=== PATIENT | female | born 2000 | race Caucasian/White ===

== ENCOUNTER 2022-03-03 13:48 | Emergency (ER) | payer OTHER, SELFPAY ==
[2022-03-03 13:54] VITALS: BP 147/80; PULSE 112; RESP 14; TEMP 36.9; O2SAT 98
--- NOTE | 2022-03-03 14:05 | ED.SKABFB ---
HPI - Skin/Abscess/Foreign Bdy General Chief complaint: Skin/Abscess/Foreign Body Stated complaint: Skin Sore/Thumb Time Seen by Provider: 03/03/22 14:06 Source: patient Mode of arrival: ambulatory Limitations: no limitations History of Present Illness HPI narrative: 21-year-old female presented for complaint of right thumb pain with 2 bumps, for the last 3 days. It was itching at onset. She states she has soaked it in Epson salt and tried opening it with cuticle scissors last night. Endorses clear drainage from the site. Rates pain 10 out of 10. Denies any other skin lesions. MD complaint: rash Related Data Allergies Allergy/AdvReac Type Severity Reaction Status Date / Time No Known Allergies Allergy Verified 03/03/22 14:03 Review of Systems Review of Systems: CONSTITUTIONAL: Denies body aches, fever, chills, or sweats. CARDIOVASCULAR: Denies chest pain, palpitations, or edema. RESPIRATORY: Denies cough or dyspnea. SKIN: right thumb wound MUSCULOSKELETAL: Denies back pain, joint pain, or myalgia. NEUROLOGIC: Denies headache, numbness, tingling, or weakness. PSYCH: Denies depression or anxiety. PMFSH Comments At time of signature, I have reviewed and agree with nursing past medical, surgical, social and family history unless otherwise noted. Please see nursing chart for further information. There is no relevant family history pertinent to the presenting complaint Exam Narrative: GENERAL: Well-appearing ENT: Mucous membranes moist. Oropharynx without edema, erythema or lesions. NECK: Supple. No lymphadenopathy CHEST: Clear to auscultation. No respiratory distress. HEART: Regular rate and rhythm. SKIN: Warm, dry. Right thumb palmar surface over the DIP with 3 firm round raised vesicles approximately 2 mm in diameter, tender to palpation c/w dyshidrotic eczema NEURO: Alert and oriented x3. PSYCH: Normal mood and affect Course Course Emergency Course: Patient is aware of diagnosis, understands and agrees to treatment plan. Anticipatory guidance given. Patient agrees to follow-up as directed and is aware of reasons to seek care at the emergency department. Portions of this record may have been created with voice recognition software Level of Care: Express Care Visit Vital Signs Vital signs: Vital Signs Temperature 98.4 F 03/03/22 13:54 Pulse Rate 112 H 03/03/22 13:54 Respiratory Rate 14 03/03/22 13:54 Blood Pressure 147/80 H 03/03/22 13:54 Pulse Oximetry 98 03/03/22 13:54 Oxygen Delivery Room Air 03/03/22 13:54 Temperature 98.4 F 03/03/22 13:54 Pulse Rate 112 H 03/03/22 13:54 Respiratory Rate 14 03/03/22 13:54 Blood Pressure 147/80 H 03/03/22 13:54 Pulse Oximetry 98 03/03/22 13:54 Oxygen Delivery Room Air 03/03/22 13:54 Reviewed MDM - Skin/Abscess/Foreign Bdy MDM Narrative Medical decision making narrative: Cleansed with technicare and warm water. Clear drainage noted. Instructed patient to go to nearest ER immediately for any worsening symptoms including but not limited to: fever, spreading rash, pain, sore throat, headache, dizziness, chest pain, trouble breathing, or any symptoms concerning to the patient. Differential Diagnosis Differential diagnosis: Likely abscess of skin or subcutaneous tissue, urticaria, herpes zoster, cellulitis and contact dermatitis Discharge Plan Discharge Clinical Impression: Dyshidrotic eczema Patient Disposition: Home, Self-Care Condition: Stable Instructions: Antibiotic Form Additional Instructions: Keep the area clean and dry - cleanse with warm water and mild soap and allow to fully dry. Ok to apply neosporin or vaseline to the site Keep it open to air (no bandages) unless it is draining Watch for worsening symptoms including pain, redness, swelling, streaking, pus/drainage, fever. Go to the ER with any of these symptoms or concerns. Follow up with primary care provider in 1 week as needed. Prescription
== END 2022-03-03 14:51 | disposition home or self-care (01) ==
PROVIDERS: Emergency Provider Nurse Practitioner Family
DX: L30.1 Dyshidrosis [pompholyx] (principal)
CPT/HCPCS: 99203; G0463

== ENCOUNTER 2023-03-06 11:31 | Emergency (ER) | payer OTHER, SELFPAY ==
[2023-03-06 11:38] VITALS: BP 125/62; PULSE 89; RESP 20; TEMP 36.7; O2SAT 100
--- NOTE | 2023-03-06 12:21 | ED.URI ---
HPI - URI/Sore Throat General Chief Complaint: Upper Respiratory Infection Stated Complaint: Sore Throat Source: patient and RN notes reviewed History of Present Illness HPI Narrative: 22 yo F presents to urgent care with complaints of a sore throat x 2 days. Denies any fevers, chills, chest pain, SOB, vomiting, congestion, or ear pain. Related Data Home Medications Medication Instructions Recorded Confirmed escitalopram oxalate 20 mg tablet 20 mg PO DAILY 03/06/23 03/06/23 norethindrone (contraceptive) 0.35 See Rx Instructions .Route .COMPLEX 03/06/23 03/06/23 mg tablet Allergies Allergy/AdvReac Type Severity Reaction Status Date / Time No Known Allergies Allergy Verified 03/06/23 11:47 Review of Systems Review of Systems: Pertinent positives and pertinent negatives per HPI. PMFSH Comments At the time of my signature, I reviewed and agree with the nursing past medical, surgical, social, and family history. There is no relevant family history pertinent to the patient complaint. Exam Narrative: GENERAL: This is a well-nourished, well-developed patient, in no apparent distress. HEAD: normocephalic, atraumatic. EYES: Sclera clear/white. Vision is grossly intact. EARS: External ears normal, auditory canals clear and without drainage, TMs normal without perforation. Hearing grossly intact. NOSE: External nose normal with no obvious nasal discharge, nares without redness, no rhinorrhea. THROAT: Mucous membranes moist, posterior pharynx clear. NECK: Neck supple, non-tender without lymphadenopathy, masses or thyromegaly. CARDIOVASCULAR: Regular rate and rhythm without murmurs, gallops, or rubs. RESPIRATORY: Clear to auscultation. Breath sounds equal bilaterally. No wheezes, rales, or rhonchi. GASTROINTESTINAL: Abdomen soft, non-tender, nondistended. Bowel sounds are active. No hepato-splenomegaly, or palpable masses. No guarding. SKIN: warm, intact with no suspicious lesions or rash, good texture and turgor. NEURO: awake, alert, and oriented to person, place and time. There were no obvious focal neurologic abnormalities. EXTREMITIES: No clubbing, cyanosis, or edema. No joint tenderness, effusion, or edema noted. BACK: Nontender without deformity or crepitus. No flank tenderness. Course Course Level of Care: Express Care Visit Vital Signs Vital signs: Vital Signs Temperature 98.0 F 03/06/23 11:38 Pulse Rate 89 03/06/23 11:38 Respiratory Rate 20 03/06/23 11:38 Blood Pressure 125/62 03/06/23 11:38 Pulse Oximetry 100 03/06/23 11:38 Oxygen Delivery Room Air 03/06/23 11:38 Temperature 98.0 F 03/06/23 11:38 Pulse Rate 89 03/06/23 11:38 Respiratory Rate 20 03/06/23 11:38 Blood Pressure 125/62 03/06/23 11:38 Pulse Oximetry 100 03/06/23 11:38 Oxygen Delivery Room Air 03/06/23 11:38 Reviewed MDM - URI/Sore Throat MDM Narrative Medical decision making narrative: Rapid strep is negative in the office; however we will send to the lab for confirmation; there is a small percentage chance that it can come back positive; if it is, we will call you in 2-3days; and your prescription will be call in to your pharmacy. However, there is NO indication for antibiotic at this time. -Increase your fluids and Vitamin C. -Oral rinses such as: Salt water gargles and/or may use topical anesthetic (eg. Chloraseptic spray) or lozenges to relieve dryness or throat pain. -Take tylenol and ibuprofen as needed for pain and fever as directed. -Frequent hand washing or hand superintendent service is one of the best ways to prevent spread of infection. -Follow up with primary care provider in 2-3 days if condition is not improving or seek ER visit if your child starts breathing fast/has trouble breathing, is not drinking enough fluids, muffle voice, difficulty opening the mouth or will not wake up or will not interact with you. Stop vaping. Differential Diagnosis Differential diagnosis: Likely upper respir
== END 2023-03-06 12:25 | disposition home or self-care (01) ==
PROVIDERS: Emergency Provider Nurse Practitioner Family
DX: J02.9 Acute pharyngitis, unspecified (principal); F32.A Depression, unspecified
CPT/HCPCS: 87081; 87880; 99213; G0463

== ENCOUNTER 2023-05-14 09:11 | Emergency (ER) | payer OTHER, SELFPAY ==
--- NOTE | 2023-05-14 09:15 | ED.URI ---
HPI - URI/Sore Throat General Chief Complaint: Upper Respiratory Infection Stated Complaint: Body Ache/Congestion Time Seen by Provider: 05/14/23 10:40 Source: patient and RN notes reviewed Mode of arrival: ambulatory Limitations: no limitations History of Present Illness HPI Narrative: 23-year-old female presents concern for 3 day history of runny nose, stuffy nose, headache, ear pain, body aches. She reports she took a COVID test 2 days ago that is negative. Reports taking [id number] medicine. MD elicited complaint: cough and sore throat Related Data Home Medications Medication Instructions Recorded Confirmed escitalopram oxalate 20 mg tablet 20 mg PO DAILY 03/06/23 03/06/23 norethindrone (contraceptive) 0.35 See Rx Instructions .Route .COMPLEX 03/06/23 03/06/23 mg tablet Allergies Allergy/AdvReac Type Severity Reaction Status Date / Time No Known Allergies Allergy Verified 03/06/23 11:47 Review of Systems Review of Systems: CONSTITUTIONAL: Reports malaise EYES: Denies visual changes, redness, or discharge. ENT: Reports rhinorrhea, congestion, otalgia and sore throat. CARDIOVASCULAR: Denies chest pain, palpitations, or edema. RESPIRATORY: Reports cough. Denies dyspnea. GASTROINTESTINAL: Denies abdominal pain, nausea, vomiting, diarrhea SKIN: Denies rash or itching. MUSCULOSKELETAL: Reports myalgia. NEUROLOGIC: Reports headache. All systems reviewed & are unremarkable except as noted in HPI and below PMFSH Comments At time of signature, agree with nursing past medical, surgical, social and family history. There is no relevant family history pertinent to the presenting complaint Exam Narrative: GENERAL: Well-appearing, well-nourished, and in no acute distress. HEAD: Normocephalic EYES: PERRLA, conjunctivae clear ENT: Nares clear, turbinates edematous and erythematous, clear discharge. Mucous membranes moist. TM erythematous and bulging bilaterally; no tragal tenderness. Oropharynx not erythematous without lesions. Tonsils not enlarged and without exudate, no drooling, no hoarseness, no trismus, uvula midline. NECK: Supple. No lymphadenopathy CHEST: Clear to auscultation, breath sounds equal. No wheezing, rhonchi, rales, or stridor. No respiratory distress, speaks in full sentences. HEART: Regular rate and rhythm. No murmur heard. SKIN: Warm, dry, no rash. NEURO: Alert and oriented x3. PSYCH: Normal mood and affect Course Course Emergency Course: Patient is aware of diagnosis, understands and agrees to treatment plan. Anticipatory guidance given. Patient agrees to follow-up as directed and is aware of reasons to seek care at the emergency department. Portions of this record may have been created with voice recognition software Level of Care: Express Care Visit Vital Signs Vital signs: Vital Signs Temperature 98.2 F 05/14/23 09:57 Pulse Rate 95 05/14/23 09:57 Respiratory Rate 18 05/14/23 09:57 Blood Pressure 126/76 05/14/23 09:57 Pulse Oximetry 100 05/14/23 09:57 Oxygen Delivery Room Air 05/14/23 09:57 Temperature 98.2 F 05/14/23 09:57 Pulse Rate 95 05/14/23 09:57 Respiratory Rate 18 05/14/23 09:57 Blood Pressure 126/76 05/14/23 09:57 Pulse Oximetry 100 05/14/23 09:57 Oxygen Delivery Room Air 05/14/23 09:57 Reviewed. MDM - URI/Sore Throat MDM Narrative Medical decision making narrative: Differential diagnosis considered: Rosas virus, strep pharyngitis, allergic rhinitis, upper respiratory tract infection, sinusitis, rhinosinusitis, nasopharyngitis. viral pharyngitis, otitis media, otitis externa, pneumonia, bronchitis, viral cough syndrome, viral syndrome, and influenza. Exam findings show no acute concerns or changes; patient is non-toxic appearing and is in no distress. Patient is appropriate for outpatient treatment and follow-up. Lab Data Attestation: I reviewed the patient's lab results. Labs: Lab Results 05/14/23 Ra
[2023-05-14 09:57] VITALS: BP 126/76; PULSE 95; RESP 18; TEMP 36.8; O2SAT 100
== END 2023-05-14 10:55 | disposition home or self-care (01) ==
PROVIDERS: Emergency Provider Nurse Practitioner
DX: U07.1 COVID-19 (principal); H66.90 Otitis media, unspecified, unspecified ear
CPT/HCPCS: 87426; 87804; 99213; C9803; G0463

== ENCOUNTER 2023-12-19 19:46 | Emergency (ER) | payer OTHER, SELFPAY ==
[2023-12-19 19:56] VITALS: BP 118/57; PULSE 136; RESP 14; TEMP 36.8; O2SAT 100
[2023-12-19 19:59] VITALS: BP 118/57; PULSE 136; RESP 14; TEMP 36.8; O2SAT 100
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
== END 2023-12-19 20:19 | disposition short-term general hospital (02) ==
PROVIDERS: Emergency Provider Nurse Practitioner Family; PCP Family Medicine
DX: T23.351A Burn of third degree of right palm, initial encounter (principal); X16.XXXA Contact with hot heating appliances, radiators and pipes, initial encounter
CPT/HCPCS: 99212; G0463

== ENCOUNTER 2024-11-10 13:06 | Emergency (ER) | payer OTHER, SELFPAY ==
[2024-11-10 13:17] VITALS: BP 138/82; PULSE 99; RESP 18; TEMP 36.4; O2SAT 100
--- NOTE | 2024-11-10 13:29 | ED_ITS ---
HPI - General Adult General Chief complaint: Extremity Injury, Upper Stated complaint: Right Thumb Pain Time Seen by Provider: 11/10/24 13:29 Source: patient, RN notes reviewed and old records reviewed Mode of arrival: ambulatory Limitations: no limitations History of Present Illness HPI narrative: 24 year old female MD complaint: swelling redness to radial aspect of right thumb Related Data Home Medications ?Medication ?Instructions ?Recorded ?Confirmed ?Last Taken ?Type metoclopramide HCl 5 mg tablet mg 11/10/24 Unknown History Allergies Allergy/AdvReac Type Severity Reaction Status Date / Time No Known Allergies Allergy Verified 11/10/24 13:23 Review of Systems Review of Systems: CONSTITUTIONAL: Denies fever, chills, or sweats. CARDIOVASCULAR: Denies chest pain, palpitations, or edema. RESPIRATORY: Denies cough or dyspnea. GASTROINTESTINAL: Denies abdominal pain, nausea, vomiting SKIN: Reports redness and swelling. Denies purulent drainage, vesicles, bullae, numbness, pain beyond proportion MUSCULOSKELETAL: Denies myalgia. NEUROLOGIC: Denies headache, numbness All systems reviewed & are unremarkable except as noted in HPI and below PMFSH Comments At time of signature, agree with nursing past medical, surgical, social and family history. There is no relevant family history pertinent to the presenting complaint Exam Narrative: GENERAL: Well-appearing, well-nourished, and in no acute distress. HEAD: Normocephalic, atraumatic. EYES: PERRLA and EOMI. ENT: Nares clear, no rhinorrhea or epistaxis. Mucous membranes moist. NECK: Supple. CHEST: Clear to auscultation. No respiratory distress. HEART: Regular rate and rhythm. No murmur heard. Normal peripheral pulses. ABDOMEN: Soft, nontender, nondistended, normal active bowel sounds. EXTREMITIES: Normal range of motion. No edema. SKIN: Warm, dry. Erythema, induration, tenderness, warmth with sharp margins noted (XX). No vesicles, bullae, necrosis, ecchymosis, crepitus noted NEURO: No focal deficits. Alert and oriented x3. Course Course Emergency Course: Patient is aware of diagnosis, understands and agrees to treatment plan. Anticipatory guidance given. Patient agrees to follow-up as directed and is aware of reasons to seek care at the emergency department. Portions of this record may have been created with voice recognition software Level of Care: Express Care Visit Vital Signs Vital signs: Vital Signs Temperature 36.4 C L 11/10/24 13:17 Pulse Rate 99 11/10/24 13:17 Respiratory Rate 18 11/10/24 13:17 Blood Pressure 138/82 11/10/24 13:17 Pulse Oximetry 100 11/10/24 13:17 Oxygen Delivery Room Air 11/10/24 13:17 Temperature 36.4 C L 11/10/24 13:17 Pulse Rate 99 11/10/24 13:17 Respiratory Rate 18 11/10/24 13:17 Blood Pressure 138/82 11/10/24 13:17 Pulse Oximetry 100 11/10/24 13:17 Oxygen Delivery Room Air 11/10/24 13:17 Reviewed Medical Decision Making Vital Signs Vital Signs: Vital Signs Temperature 36.4 C L 11/10/24 13:17 Pulse Rate 99 11/10/24 13:17 Respiratory Rate 18 11/10/24 13:17 Blood Pressure 138/82 11/10/24 13:17 Pulse Oximetry 100 11/10/24 13:17 Oxygen Delivery Room Air 11/10/24 13:17 Temperature 36.4 C L 11/10/24 13:17 Pulse Rate 99 11/10/24 13:17 Respiratory Rate 18 11/10/24 13:17 Blood Pressure 138/82 11/10/24 13:17 Pulse Oximetry 100 11/10/24 13:17 Oxygen Delivery Room Air 11/10/24 13:17 Critical Care Time Critical Care Time Critical Care Time: No Discharge Plan Discharge Clinical Impression: Paronychia, Paronychia of thumb, right Patient Disposition: Home, Self-Care Condition: Stable Instructions: Antibiotic Form, Paronychia (ED) Additional Instructions: Soak right thumb in warm soapy water twice daily rinse apply mupirocin ointment and Band-Aid watch for increasing infection--redness, swelling, drainage Tylenol or ibuprofen for any fever pain follow up with PCP in 7-10 days for a wound check recheck if develop fever, chills, increasing symptom Go to the ER if your symptoms become worse of if ANY new symptoms develop Antibiotic as prescribed complete all doses Or any new gloves when cleaning and use of chemicals If your symptoms persist, change or worsen significantly before you can contact your personal physician then please, without delay, go to the emergency department for further evaluation. Follow-up with PCP in 7-10 days or sooner if needed Follow up with PCP soon in regards to your blood pressure which is elevated above threshold for referral. Blood pressure above 120/80 may indicate pre- hypertension. 138/82 Patient Language: Macedonian Prescriptions: New cephalexin 500 mg capsule 500 mg PO Q8H Qty: 30 0RF mupirocin [Centany] 2 % ointment 1 applic topical BID Qty: 22 0RF No Action metoclopramide HCl 5 mg tablet Follow-up/Referrals: Jason,Leah May MD [Primary Care Provider] - Time of Disposition: 13:40 Quality Moise Coma Scale Eyes: Open Verbal: Oriented and Alert Motor: Follows Commands Moise Coma Total Score: 15
--- OUTSIDE RECORDS SUMMARY | 2024-11-10 14:28 | XMS_ITS | Referral Summary ---
Author Organization [facility] [address] Address [address] [place] [address] Phone Care Team Providers Care Puff Ironer Name Role Phone Leah Gomez MD Primary Care Provider [phone] Encounters Date Type Department Care Team Description 09/14/2024 2:45 PM CHEMISTRY QUALITY CONTROL ANALYST Office Visit [facility] [address] [place] [address] Health 3rd Floor [address] [place] [address] Justine Garcia MD Cervical cancer screening (Primary Dx); Dysmenorrhea, unspecified from Last 3 Months Allergies No known active allergies Medications HYDROcodone-aceta minophen (NORCO) 5-325 mg per tabletIndications :Pain Take 1 tablet by mouth every 6 (six) hours as needed for pain for up to 20 doses 20 tablet 4 Active silver sulfadiazine (SILVADENE, SSD) 1 % cream Apply topically daily 50 g 4 Active Active Problems No known active problems Immunizations Immunization Administration Dates Next Due Tdap 12/19/2023 Social History Tobacco Use Types Packs/Day Years Used Date Smoking Tobacco: Never Tobacco Cessation:Counseling Given: Not Answered Hunger Vital Sign Answer Date Recorded Within the past 12 months, y ou worried that your food would run out before you got the money to buy more. Never true 09/14/19 25 Within the past 12 months, t he food you bought just didn't last and you didn't have money to get more. Never true 09/14/2024 Personal Safety Answer Date Recorded Have you ever been in or are you currently in a harmful physical or emotional relationship or is someone making you feel afraid or unsafe? Denies 12/19/2023 Comments No Sex and Gender Information Value Date Recorded Sex Assigned at Not on file Legal Sex Female 8:43 AM CHEMISTRY QUALITY CONTROL ANALYST Gender Identity Female 09/14/2024 11:44 AM CHEMISTRY QUALITY CONTROL ANALYST Sexual Orientation Straight 09/14/2024 11 :44 AM CHEMISTRY QUALITY CONTROL ANALYST Last Filed Vital Signs Vital Sign Reading Time Taken Comments Blood Pressure 136/72 09/14/2024 2:37 PM CHEMISTRY QUALITY CONTROL ANALYST Pulse 119 09/14/2024 2:37 PM CHEMISTRY QUALITY CONTROL ANALYST Temperature 37.2 C (99 F) 12/19/2023 8:58 PM CDT Respiratory Rate 18 12/19/2023 8:58 PM CDT Oxygen Saturation 100% 09/14/2024 2:37 PM CHEMISTRY QUALITY CONTROL ANALYST Inhaled Oxygen Concentration - - Weight 99.3 kg (219 lb) 09/14/2024 2:37 PM CHEMISTRY QUALITY CONTROL ANALYST Height 162.6 cm (5' 4 ) 12/19/2023 8:58 PM CDT Body Mass Index 37.59 12/19/2023 8:58 PM CDT Plan of Treatment Not on file Insurance [facility] Care Teams Puff Ironer Relationship Specialty Start Date End Date Leah Gomez MD [address] [place] [address] PCP - General Obstetrics and Gynecology 11/07/23
--- OUTSIDE RECORDS SUMMARY | 2024-11-10 14:28 | XMS_ITS | Clinical Summary ---
Author Organization [facility] [address] Address [address] [place] [address] Phone Care Team Providers Care Customer Service Consultant Name Role Phone Leah Gomez MD Primary Care Provider [phone] Allergies No known active allergies Medications HYDROcodone-aceta minophen (NORCO) 5-325 mg per tabletIndications :Pain Take 1 tablet by mouth every 6 (six) hours as needed for pain for up to 20 doses 20 tablet 4 Active silver sulfadiazine (SILVADENE, SSD) 1 % cream Apply topically daily 50 g 4 Active Active Problems No known active problems Encounters Date Type Department Care Team Description 09/14/2024 2:45 PM WASTEWATER PLANT CIVIL ENGINEER Office Visit Obstetrics and Gynecology Clinic [facility] 3rd Floor [address] [place] [address] Justine Garcia MD Cervical cancer screening (Primary Dx); Dysmenorrhea, unspecified from Last 3 Months Immunizations Immunization Administration Dates Next Due Tdap [...] on file Legal Sex Female 8:43 AM WASTEWATER PLANT CIVIL ENGINEER Gender Identity Female 09/14/2024 11:44 AM WASTEWATER PLANT CIVIL ENGINEER Sexual Orientation Straight 09/14/2024 11 :44 AM WASTEWATER PLANT CIVIL ENGINEER Obstetrics History Para Term AB IAB SAB Ectopic Multiple Livin g Live Births 0 0 0 0 0 0 0 0 0 0 0 Last Filed Vital Signs Vital Sign Reading Time Taken Comments Blood Pressure 136/72 09/14/2024 2:37 PM WASTEWATER PLANT CIVIL ENGINEER Pulse 119 09/14/2024 2:37 PM WASTEWATER PLANT CIVIL ENGINEER Temperature 37.2 C (99 F) 12/19/2023 8:58 PM CDT Respiratory Rate 18 12/19/2023 8:58 PM CDT Oxygen Saturation 100% 09/14/2024 2:37 PM WASTEWATER PLANT CIVIL ENGINEER Inhaled Oxygen Concentration - - Weight 99.3 kg (219 lb) 09/14/2024 2:37 PM WASTEWATER PLANT CIVIL ENGINEER Height 162.6 cm (5' 4 ) 12/19/2023 8:58 PM CDT Body Mass Index 37.59 12/19/2023 8:58 PM CDT Plan of Treatment Health Maintenance Due Date Last Done Comments Cervical Cancer Screening 2002 Depression Screening 2002 Hepatitis C Screening 2002 Regular Well Visit/Exam 18-64 2020 Covid-19 Vaccine (3 - 2023-2 5 season) 2024 05/21/2021, 04/26/2021 Influenza Vaccine (#1) 2024 05/20/2015 DTaP/Tdap/Td Vaccine (7 - Td or Tdap) 12/18/2033 12/19/2023, 12/05/2012, 04/07/2007, Additional history exists Hepatitis B Screening Completed 2002 , 2002, 2002 Pneumococcal vaccine <65 Completed 003, 2002, 2002 Varicella Vaccines Completed 01/17/2011, 04/07/2007 HPV Vaccines Completed 03/14/2016, 07/04, 05/20/2015 Meningococcal B Vaccine Completed 03/20/2019, 12/08 Insurance [facility] Care Teams Customer Service Consultant Relationship Specialty Start Date End Date Leah Gomez MD [address] [place] [id number] PCP - General Obstetrics and Gynecology 11/07/23
== END 2024-11-10 13:44 | disposition home or self-care (01) ==
PROVIDERS: Emergency Provider Registered Nurse; PCP Family Medicine
DX: L03.011 Cellulitis of right finger (principal)
CPT/HCPCS: 99213; G0463

== ENCOUNTER 2025-01-09 08:36 | Emergency (ER) | payer OTHER, SELFPAY ==
--- OUTSIDE RECORDS SUMMARY | 2025-01-09 08:38 | XMS_ITS | Referral Summary ---
Author Organization [facility] [address] Address 1 [place] [address] Phone Care Team Providers Care Porter Baggage Name Role Phone Leah Gomze MD Primary Care Provider [phone] Encounters Date Type Department Care Team Description 11/29/2024 2:48 PM CDT - 11/29/2024 4:08 PM CDT [facility] Emergency Department 1 [place], [place] [id number] Khurram Tang MD Miscarriage (Primary Dx) Discharge Disposition: Discharge to home or self care from Last 3 Months Allergies No known [...] making you feel afraid or unsafe? Denies 11/29/2024 Comments Unknown Sex and Gender Information Value Date Recorded Sex Assigned at Not on file Legal Sex Female 8:43 AM ENGINEERING DOCUMENTATION SPECIALIST Gender Identity Female 09/14/2024 11:44 AM ENGINEERING DOCUMENTATION SPECIALIST Sexual Orientation Straight 09/14/2024 11 :44 AM ENGINEERING DOCUMENTATION SPECIALIST Last Filed Vital Signs Vital Sign Reading Time Taken Comments Blood Pressure 136/88 11/29/2024 2:46 PM CDT Pulse 110 11/29/2024 2:46 PM CDT Temperature 36.9 C (98.5 F) 11/29/2024 2:46 PM CDT Respiratory Rate 16 11/29/2024 2:46 PM CDT Oxygen Saturation 100% 11/29/2024 2:46 PM CDT Inhaled Oxygen Concentration - - Weight 95.3 kg (210 lb) 11/29/2024 2:46 PM CDT Height 162.6 cm (5' 4 ) 12/19/2023 8:58 PM CDT Body Mass Index 36.05 12/19/2023 8:58 PM CDT Plan of Treatment Not on file Procedures Procedure Name Priority Date/Time Associated Diagnosis Comments URINALYSIS, MICROSCOPIC ONLY STAT 11/29/2024 3:13 PM CDT DIFFERENTIAL AUTO STAT 11/29/2024 3:1 3 PM CDT ANTIBODY SCREEN STAT 11/29/2024 3:13 PM CDT ABO/RH STAT 11/29/2024 3:13 PM CDT HCG, BLOOD, QUANTITATIVE STAT 11/29/2024 3:13 PM CDT CBC WITH AUTO DIFFERENTIAL STAT 11/29/2024 3:13 PM CDT TYPE AND SCREEN STAT 11/29/2024 3:13 PM CDT URINE CULTURE STAT 11/29/2024 3:13 PM CDT URINALYSIS AND REFLEX TO MICROSCOPIC AND CULTURE STAT 11/29/2024 3:13 PM CDT from Last 3 Months Results * (ABNORMAL) Differential, auto (11/29/2024 3:13 PM CDT) Neutrophil abs 6.7(H) 1.5 - 6.5 K/cumm Imm gran abs 0.0 0.0 - 0.1 K/cumm [facility] ([facility]) Lymphocyte abs 1.2 0.8 - 3.3 K/cumm [facility] ([place]) Monocyte abs 0.5 0.2 - 0.8 K/cumm [facility] ([place]) Eosinophil abs 0.0 0.0 - 0.5 K/cumm [facility] ([place]) Basophil abs 0.0 0.0 - 0.1 K/cumm [facility] ([place]) Neutrophil pct 78.4 % [facility] ([place]) Comment: Interpretive Data Percent cell count reference ranges are not reported, since discordance with absolute values may lead to misinterpretation of CBC data. Current Interpretive Data was last revised on 2017. Imm gran pct 0.2 % [facility] ([place]) Comment: Interpretive Data Percent cell count reference ranges are not reported, since discordance with absolute values may lead to misinterpretation of CBC data. Current Interpretive Data was last revised on 2017. Lymphocyte pct 14.1 % [facility] ([place]) Comment: Interpretive Data Percent cell count reference ranges are not reported, since discordance with absolute values may lead to misinterpretation of CBC data. Current Interpretive Data was last revised on 2017. Monocyte pct 6.4 % [facility] ([place]) Comment: Interpretive Data Percent cell count reference ranges are not reported, since discordance with absolute values may lead to misinterpretation of CBC data. Current Interpretive Data was last revised on 2017. Eosinophil pct 0.4 % [facility] ([place]) Comment: Interpretive Data Percent cell count reference ranges are not reported, since discordance with absolute values may lead to misinterpretation of CBC data. Current Interpretive Data was last revised on 2017. Basophil pct 0.5 % [facility] ([place]) Comment: Interpretive Data Percent cell count reference ranges are not reported, since discordance with absolute values may lead to misinterpretation of CBC data. Current Interpretive Data was last revised on 2017. Blood 11/29/2024 3:13 PM CDT 11/29/2024 3:15 PM CDT us Khurram Tang MD LAB BLOOD ORDERABLES Final R esult [facility] ([place]) 1 [facility] Department [place] [address] * (ABNORMAL) Urinalysis reflex to microscopic and culture Urine (11/29/2024 3:13 PM CDT) Color, ur Red(A) Yellow Clarity, ur Turbid(A) Clear [facility] ([place]) Specific gravity, ur See Comment 1.003 - 1.030 [facility] ([place]) Comment:Due to the presence of Urine Chromagens and/or Gross Blood, only a microscopic examination was performed. pH, urine See Comment [facility] ([place]) Comment: Due to the presence of Urine Chromagens and/or Gross Blood, only a microscopic examination was performed. Interpretive Data U rine pH is affected by diet, medications, systemic acid-base disturbances, and renal tubular function. pH may affect urinary stone formation. For example, urine pH below 6.0 may help reduce the tendency for calcium phosphate stones and pH greater than 6.0 may reduce the tendency for uric acid stone formation. Source: [facility] Current Interpretive Data was last revised on 2017 Protein, ur ql See Comment Negative [facility] ([place]) Comment:Due to the presence of Urine Chromagens and/or Gross Blood, only a microscopic examination was performed. Glucose, ur ql See Comment Negative [facility] ([place]) Comment:Due to the presence of Urine Chromagens and/or Gross Blood, only a microscopic examination was performed. Ketones, ur See Comment Negative [facility] ([place]) Comment:Due to the presence of Urine Chromagens and/or Gross Blood, only a microscopic examination was performed. Bilirubin, ur See Comment Negative [facility] ([place]) Comment:Due to the presence of Urine Chromagens and/or Gross Blood, only a microscopic examination was performed. Blood, ur See Comment Negative [facility] ([place]) Comment:Due to the presence of Urine Chromagens and/or Gross Blood, only a microscopic examination was performed. Urobilinogen, ur See Comment <2.0 mg/dL [facility] ([place]) Comment:Due to the presence of Urine Chromagens and/or Gross Blood, only a microscopic examination was performed. Nitrite, ur See Comment Negative [facility] ([place]) Comment:Due to the presence of Urine Chromagens and/or Gross Blood, only a microscopic examination was performed. Leukocyte esterase, ur See Comment Negative [facility] ([place]) Comment:Due to the presence of Urine Chromagens and/or Gross Blood, only a microscopic examination was performed. Urine 11/29/2024 3:13 PM CDT 11/29/2024 3:17 PM CDT Khurram Tang MD LAB MICROBIOLOGY - GENERAL O RDERABLES Final Result [facility] ([place]) 1 [facility] Department [place] [address] * CBC with auto differential (11/29/2024 3:13 PM CDT) WBC 8.5 3.8 - 9.9 K/cumm Hgb 13.8 11.9 - 15.5 g/dL [facility] ([place]) Hct 42.2 35.6 - 45.5 % [facility] ([place]) Plt 312 150 - 400 K/cumm [facility] ([place]) MPV 11.2 9.1 - 12.3 fL [facility] ([place]) RBC 4.78 3.90 - 5.20 M/cumm [facility] ([place]) MCV 88.3 81.3 - 96.4 fL [facility] ([place]) MCH 28.9 27.1 - 33.3 pg [facility] ([place]) MCHC 32.7 32.3 - 35.7 g/dL [facility] ([place]) RDW CV 13.2 11.1 - 14.9 % [facility] ([place]) RDW SD 43.0 35.7 - 48.1 fL [facility] ([place]) NRBC abs 0.00 0.00 - 0.01 K/cumm [facility] ([place]) Blood 11/29/2024 3:13 PM CDT 11/29/2024 3:15 PM CDT Khurram Tang MD LAB BLOOD ORDERABLES Final R esult Performing Organization Address City/[facility] Co de Phone Number [facility] ([place]) [address] [place] [address] of [place] [place] [address] * ABO/Rh (11/29/2024 3:13 PM CDT) ABO/Rh A Positive Blood 11/29/2024 3:13 PM CDT 11/29/2024 3:15 PM CDT Narrative [facility] ([place]) - 11/29/2024 3:59 PM CDT Has the patient had Daratumumab or Isatuximab in the past 6 months?->Unknown Khurram Tang MD LAB BLOOD BANK TEST ORDERABL ES Final Result Performing Organization Address [facility] de Phone Number [facility] ([place]) [address] [place] [address] [place] [place] [address] * (ABNORMAL) Urinalysis, microscopic only (11/29/2024 3:13 PM CDT) WBC, ur >50(A) 0 - 5 /HPF RBC, ur >50(A) 0 - 2 /HPF [facility] ([place]) Mucous, ur Present(A) [facility] ([place]) Culture Reflex Comment Reflex to urine culture will be performed. [facility] ([place]) Urine 11/29/2024 3:13 PM CDT 11/29/2024 3:17 PM CDT Khurram Tang MD LAB URINE ORDERABLES Final R esult [facility] ([place]) 1 [facility] Department of [place] [address] * Antibody screen (11/29/2024 3:13 PM CDT) Ranulfo, indirect, Gel Interpretation Negative ABSC Blood 11/29/2024 3:13 PM CDT 11/29/2024 3:15 PM CDT Narrative [facility] ([place]) - 11/29/2024 3:59 PM CDT Has the patient had Daratumumab or Isatuximab in the past 6 months?->Unknown Khurram Tang MD LAB BLOOD BANK TEST ORDERABL ES Final Result Performing Organization Address [facility]/ZIP Co de Phone Number [facility] ([place]) 1 [facility] [place] [address] * Urine culture Urine (11/29/2024 3:13 PM CDT) Report Final Report: Less than 100,000 colonies/mL (clinically insignificant growth based on current clinical standards) Comment:Testing performed by : [facility], 1 [place]., [address] Organism (CLINICALLY INSIGNIFICANT GROWTH [facility] ([place]) Urine 11/29/2024 3:13 PM CDT 11/29/2024 5:52 PM CDT Narrative [facility] ([place]) - 11/30/2024 6:26 PM CDT Urine culture reflexed based upon urinalysis results. Testing performed by [facility] Microbiology Laboratory ([phone]) Khurram Tang MD LAB MICROBIOLOGY - GENERAL O RDERABLES Final Result Performing Organization Address City/[facility]/ZIP Co de Phone Number [facility] ([place]) 1 [facility] Department [place] [address] * hCG, blood, quantitative (11/29/2024 3:13 PM CDT) [facility] hCG, quant 5.0 0.0 - 5.0 IUnits/L Comment: Interpretive Data Male: < 5 IU/L Non- premenopausal Female: <5 IU/L The Anne hCG Beta Quant assay procedure was used. Results from different manufacturers or methods may not be comparable. Serial testing should be performed using the same method. Interpretive Data was last revised on 2023 Blood 11/29/2024 3:13 PM CDT 11/29/2024 3:15 PM CDT us Khurram Tang MD LAB BLOOD ORDERABLES Edited Result - Final [facility] ([place]) 1 [facility] Department [place] [address] from Last 3 Months Insurance [facility] Care Teams Porter Baggage Relationship Specialty Start Date End Date Leah Gomez MD [address] [place] [address] PCP - General Obstetrics and Gynecology 11/07/23
--- OUTSIDE RECORDS SUMMARY | 2025-01-09 08:38 | XMS_ITS | Clinical Summary ---
Author Organization [facility] Address [address] [place] [address] Phone Care Team Providers Care Accounting Manager Controller Name Role Phone Charlie Baker MD Primary Care Provider Social History Tobacco Use Types Packs/Day Years Used Date Smoking Tobacco: Never Assessed Comments Unknown Sex and Gender Information Value Date Recorded Sex Assigned at Not on file Legal Sex Female 11:14 PM CDT Gender Identity Not on file Sexual Orientation Not on file Plan of Treatment Upcoming Encounters Date Type Department Care Team (Latest Contact Info) Description 01/21/2025 3:15 PM CDT Outpatient [facility] 1 [place] [address] Shawna Ferguson, MILL CONTROLLER [address] [place] [address] Discharge Disposition: Discharged to home or Selfcare Health Maintenance Due Date Last Done Comments Hepatitis C Virus (HCV) Screening 2002 TdaP Immunization 2002 Human Papillomavirus (HPV) Immunization (1 - 3-dose series) 2017 Meningococcal B Immunization (1 of 2 - Standard) 2018 Hepatitis B Immunization (1 of 3 - 19+ 3-dose series) 2021 Pap Smear 2023 SARS-COV-2 Immunization (1 - 2023-25 season) 2024 Influenza Immunization (Seas on Ended) 2025 Respiratory Syncytial Virus (RSV) Immunization (Adult) (1 - 1-dose 75+ series) 2077 Meningococcal Immunization (ACWY) Aged Out No longer eligible based on patient's age to complete this topic Pneumococcal Immunization Combined Aged Out No longer eligible based on patient's age to complete this topic Rotavirus Immunization Aged Out No lo nger eligible based on patient's age to complete this topic Insurance [place] [employer] Care Teams Accounting Manager Controller Relationship Specialty Start Date End Date Charlie Baker MD [address] [place] [id number] PCP - General Pediatrics 11/01/15
--- OUTSIDE RECORDS SUMMARY | 2025-01-09 08:38 | XMS_ITS | Clinical Summary ---
Author Organization [facility] [address] Address 1 [place] [address] Phone Care Team Providers Care Automobile Mechanic Supervisor Name Role Phone Leah Gomez MD Primary Care Provider [phone] Allergies No known active allergies Medications HYDROcodone-aceta [...] CDT - 11/29/2024 4:08 PM CDT Emergency [facility] Emergency Department 1 [place] [address] Khurram Tang MD Miscarriage (Primary Dx) Discharge Disposition: Discharge to home or self care from Last 3 Months Immunizations Immunization Administration [...] on file Legal Sex Female 8:43 AM INFRASTRUCTURE ENGINEER Gender Identity Female 09/14/2024 11:44 AM INFRASTRUCTURE ENGINEER Sexual Orientation Straight 09/14/2024 11 :44 AM INFRASTRUCTURE ENGINEER Obstetrics History Para Term AB IAB [...] Regular Well Visit/Exam 18-64 2020 Covid-19 Vaccine (2023-2 5 season) 2024 05/21/2021, 04/26/2021 Influenza Vaccine (Season Ended) 2025 05/20/20 15 DTaP/Tdap/Td Vaccine (7 - Td or Tdap) 12/18/2033 12/19/2023, 12/05/2012, 04/07/2007, Additional history exists Hepatitis B Screening Completed 2002 , 2002, 2002 Pneumococcal vaccine <65 Completed 003, 2002, 2002 Varicella Vaccines Completed 01/17/2011, 04/07/2007 HPV Vaccines Completed 03/14/2016, 07/04, 05/20/2015 Meningococcal B Vaccine Completed 03/20/2019, 12/08 Procedures Procedure Name Priority Date/Time Associated Diagnosis [...] revised on 2017. Monocyte pct 6.4 % [facility] ([place]) Comment: Interpretive Data Percent cell count [...] revised on 2017. Basophil pct 0.5 % [facility] ([place]) Comment: Interpretive Data Percent cell count reference ranges are not reported, since discordance with absolute values may lead to misinterpretation of CBC data. Current Interpretive Data was last revised on 2017. Blood 11/29/2024 3:13 PM CDT 11/29/2024 3:15 PM CDT Khurram Tang MD LAB BLOOD ORDERABLES Final R esult [facility] ([place]) 1 [facility] [place] [address] * (ABNORMAL) Urinalysis reflex to microscopic and culture Urine (11/29/2024 3:13 PM CDT) Color, ur Red(A) Yellow Clarity, ur Turbid(A) Clear [facility] ([place]) Specific gravity, ur See Comment 1.003 - 1.030 [facility] ([place]) Comment:Due to the presence of Urine Chromagens and/or Gross Blood, only a microscopic examination was performed. pH, urine See Comment [facility] ([place]) Comment: Due to the presence of Urine [...] tendency for uric acid stone formation. Source: [facility] Current Interpretive Data was last revised on [...] Bilirubin, ur See Comment Negative [facility] ([place]) Comment:Due to the presence of Urine Chromagens and/or Gross Blood, only a microscopic examination was performed. Blood, ur See Comment Negative [facility] ([place]) Comment:Due to the presence of Urine [...] 3:13 PM CDT 11/29/2024 3:17 PM CDT us Khurram Tang MD LAB MICROBIOLOGY - GENERAL O RDERABLES Final Result [facility] ([place]) 1 [facility] [place] [address] * CBC with auto differential (11/29/2024 3:13 [...] ([place]) MCHC 32.7 32.3 - 35.7 g/dL [facility] ([place]) RDW CV 13.2 11.1 - 14.9 % [facility] ([place]) RDW SD 43.0 35.7 - 48.1 fL [facility] ([place]) NRBC abs 0.00 0.00 - 0.01 K/cumm [facility] ([place]) Blood 11/29/2024 3:13 PM CDT 11/29/2024 3:15 PM CDT Khurram Tang MD LAB BLOOD ORDERABLES Final R esult [facility] ([place]) 1 [facility] [place] [address] * ABO/Rh (11/29/2024 3:13 PM CDT) ABO/Rh A Positive Blood 11/29/2024 3:13 PM CDT 11/29/2024 3:15 PM CDT Narrative [facility] ([place]) - 11/29/2024 3:59 PM CDT Has the patient had Daratumumab or Isatuximab in the past 6 months?->Unknown Khurram Tang MD LAB BLOOD BANK TEST ORDERABL ES Final Result Performing Organization Address [facility]/ZIP Co de Phone Number [facility] ([place]) 1 [facility] [address] [place] [address] * (ABNORMAL) Urinalysis, microscopic only (11/29/2024 3:13 PM CDT) WBC, ur >50(A) 0 - 5 /HPF RBC, ur >50(A) 0 - 2 /HPF [facility] ([place]) Mucous, ur Present(A) [facility] ([place]) Culture Reflex Comment Reflex to urine culture will be performed. [facility] ([place]) Urine 11/29/2024 3:13 PM CDT 11/29/2024 3:17 PM CDT Khurram Tang MD LAB URINE ORDERABLES Final R esult Performing Organization Address [facility] Co de Phone Number [facility] ([place]) 1 [facility] [address] [place] [address] * Antibody screen (11/29/2024 3:13 PM CDT) Ranulfo, indirect, Gel Interpretation Negative ABSC Blood 11/29/2024 3:13 PM CDT 11/29/2024 3:15 PM CDT Narrative [facility] ([place]) - 11/29/2024 3:59 PM CDT Has the patient had Daratumumab or Isatuximab in the past 6 months?->Unknown Khurram Tang MD LAB BLOOD BANK TEST ORDERABL ES Final Result Performing Organization Address [facility]/ZIP Co de Phone Number [facility] ([place]) 1 [facility] [address] [place] [address] * Urine culture Urine (11/29/2024 3:13 PM CDT) Report Final Report: Less than 100,000 colonies/mL (clinically insignificant growth based on current clinical standards) Comment:Testing performed by : [facility], 1 [place]., [address] Organism (CLINICALLY INSIGNIFICANT GROWTH [facility] ([place]) Urine 11/29/2024 3:13 PM CDT 11/29/2024 5:52 PM CDT Narrative [facility] ([place]) - 11/30/2024 6:26 PM CDT Urine culture reflexed based upon urinalysis results. Testing performed by [facility] Microbiology Laboratory ([phone]) Khurram Tang MD LAB MICROBIOLOGY - GENERAL O RDERABLES Final Result [facility] ([place]) 1 [facility] [address] * hCG, blood, quantitative (11/29/2024 3:13 PM CDT) hCG, quant 5.0 0.0 - 5.0 IUnits/L [...] CDT Khurram Tang MD LAB BLOOD ORDERABLES Edited Result - Final [facility] ([place]) 1 [facility] [address] from Last 3 Months Insurance [facility] Care Teams Automobile Mechanic Supervisor Relationship Specialty Start Date End Date Leah Gomez MD [address] [place] [address] PCP - General Obstetrics and Gynecology 11/07/23
[2025-01-09 08:45] VITALS: BP 149/77; PULSE 89; RESP 18; TEMP 36.6; O2SAT 100
--- NOTE | 2025-01-09 08:45 | ED.URI ---
HPI - URI/Sore Throat General Chief Complaint: Ear Stated Complaint: right ear pain,throat pain Time Seen by Provider: 01/09/25 08:47 Source: patient and RN notes reviewed Mode of arrival: ambulatory Limitations: no limitations History of Present Illness HPI Narrative: 24-year-old female presents with concern for sore throat and right ear pain. Reports she woke up this morning with symptoms. She denies fever drainage from the ear. She did not take any medication for her symptoms. MD elicited complaint: sore throat Related Data Home Medications ?Medication ?Instructions ?Recorded ?Confirmed ?Last Taken ?Type sertraline 25 mg tablet mg 01/09/25 Unknown History Allergies Allergy/AdvReac Type Severity Reaction Status Date / Time No Known Allergies Allergy Verified 01/09/25 08:54 Review of Systems Review of Systems: CONSTITUTIONAL: Denies malaise, chills, sweats, or fever. EYES: Denies visual changes, redness, or discharge. ENT: Reports rhinorrhea, congestion, otalgia and sore throat. CARDIOVASCULAR: Denies chest pain, palpitations, or edema. RESPIRATORY: Reports cough. Denies dyspnea. GASTROINTESTINAL: Denies abdominal pain, nausea, vomiting, diarrhea SKIN: Denies rash or itching. MUSCULOSKELETAL: Denies myalgia. NEUROLOGIC: Denies headache. All systems reviewed & are unremarkable except as noted in HPI and below PMFSH Past Medical History Medical History (Updated 01/09/25 @ 08:55 by Marilu Crow NP) Depression Miscarriage September 2024 Social History Social History (Updated 11/13/24 @ 15:46 by Parvin King NP) Smoking status: Current every day smoker Tobacco type: e-cigarettes/vaping Alcohol intake: current Alcohol use details: social Substance use type: does not use Living arrangements: with family Gender identity (if verbalized by the patient): Female Comments At time of signature, agree with nursing past medical, surgical, social and family history. There is no relevant family history pertinent to the presenting complaint Exam Narrative: GENERAL: Well-appearing, well-nourished, and in no acute distress. HEAD: Normocephalic EYES: PERRLA, conjunctivae clear ENT: Nares clear. Mucous membranes moist. TM pearly hilton with dull light reflex on the left, erythematous and bulging on the right; no tragal tenderness. Oropharynx not erythematous without lesions. Tonsils not enlarged and without exudate, no drooling, no hoarseness, no trismus, uvula midline. NECK: Supple. No lymphadenopathy CHEST: Clear to auscultation, breath sounds equal. No wheezing, rhonchi, rales, or stridor. No respiratory distress, speaks in full sentences. HEART: Regular rate and rhythm. No murmur heard. SKIN: Warm, dry, no rash. NEURO: Alert and oriented x3. PSYCH: Normal mood and affect Course Course Emergency Course: Patient is aware of diagnosis, understands and agrees to treatment plan. Anticipatory guidance given. Patient agrees to follow-up as directed and is aware of reasons to seek care at the emergency department. Portions of this record may have been created with voice recognition software Level of Care: Express Care Visit Vital Signs Vital signs: Reviewed. MDM - URI/Sore Throat MDM Narrative Medical decision making narrative: Differential diagnosis considered: Rosas virus, strep pharyngitis, allergic rhinitis, upper respiratory tract infection, sinusitis, rhinosinusitis, nasopharyngitis. viral pharyngitis, otitis media, otitis externa, pneumonia, bronchitis, viral cough syndrome, viral syndrome, and influenza. Exam findings show no acute concerns or changes; patient is non-toxic appearing and is in no distress. Patient is appropriate for outpatient treatment and follow-up. Lab Data Attestation: I reviewed the patient's lab results. Critical Care Time Critical Care Time Critical Care Time: No Discharge Plan Discharge Clinical Impression: Otitis media Patient Disposition: Home Condition: Stable Instructions: Antibiotic Form, Ear Infection (ED) Additional Instructions: Take antibiotics as directed. Recommend antihistamine such as Benadryl at night time and Zyrtec or Sophie during the day until symptoms improve Flonase nasal spray, 2 sprays in each nostril once daily until symptoms improve Also, recommend symptomatic treatment includes: rest, fluids, and increase humidity of the air at home. Recommend Acetaminophen as directed on the bottle to reduce fever, pain Please schedule a follow-up visit with your personal physician for further evaluation and treatment within 3-5days. If your symptoms persist, change or worsen significantly before you can contact your personal physician then please, without delay, go to the emergency department for further evaluation. Patient Language: Bulgarian Prescriptions: New pseudoephedrine HCl [12 Hour Decongestant] 120 mg tablet extended release 120 mg PO Q12H PRN (Reason: nasal congestion) Qty: 20 0RF amoxicillin 875 mg tablet 875 mg PO Q12H 10 Days Qty: 20 0RF No Action sertraline 25 mg tablet Follow-up/Referrals: Jason,Leah May MD [Primary Care Provider] - Time of Disposition: 08:57
== END 2025-01-09 08:58 | disposition home or self-care (01) ==
PROVIDERS: Emergency Provider Nurse Practitioner; PCP Family Medicine
DX: H66.91 Otitis media, unspecified, right ear (principal); Z79.899 Other long term (current) drug therapy; F17.290 Nicotine dependence, other tobacco product, uncomplicated
CPT/HCPCS: 99213; G0463

== ENCOUNTER 2025-04-22 13:12 | Emergency (ER) | payer OTHER, SELFPAY ==
[2025-04-22 13:18] VITALS: BP 138/74; PULSE 107; RESP 16; TEMP 36.4; O2SAT 100
--- OUTSIDE RECORDS SUMMARY | 2025-04-22 13:21 | XMS_ITS | Clinical Summary ---
Author Organization [facility] Address [address] [place] [address] Phone Care Team Providers Care Zipper Lining Folder Name Role Phone Leah Gomez MD Primary Care Provider [phone] Medications No known medications Encounters Date Type Department Care Team Description 01/21/2025 3:15 PM CDT [facility] [address] [place] [address] Shawna Ferguson, [facility] Adjustment disorder with mixed anxiety and depressed mood (Primary Dx) Discharge Disposition: Discharged to home or Selfcare 01/21/2025 Travel from Last 3 Months Family History Relation Name Status Comments Brother Alive Father Alive Mother Alive Sister Alive Social History Tobacco Use Types Packs/Day Years Used Date Smoking Tobacco: Every Day Cigarettes Smokeless Tobacco: Never Tobacco Cessation:Ready to Q uit: Not Asked; Counseling Given: Not Answered Alcohol Use Standard Drinks/Week Comments Not Currently 0 (1 standard drink = 0.6 oz pur e alcohol) Sexually Active Control Partners Comments Not Currently Comments Unknown Sex and Gender Information Value Date Recorded Sex Assigned at Not on file Legal Sex Female 11:14 PM CDT Gender Identity Not on file Sexual Orientation Not on file Plan of Treatment Health Maintenance Due Date Last Done Comments Hepatitis C Virus (HCV) Screening 2002 Pneumococcal Immunization Combined (1 of 2 - PCV) 2021 05/13/2003, 2002, 2002 Pap Smear 2023 SARS-COV-2 Immunization ( season) 2024 05/21/2021, 04/26/2021 Influenza Immunization (#1) 2025 05/20/2015 Respiratory Syncytial Virus (RSV) Immunization (Adult) (1 - 1-dose 75+ series) 2077 Measles Mumps Rubella (MMR) Immunization Discontinued 04/07/2007, 05/13/2003 Polio (IPV) Immunization Discontinued 007, 05/13/2003, 2002, Additional history exists Varicella Immunization Discontinued 01/17/2011, 2006 Hepatitis A Immunization Discontinued 12/05/2012, 12/31 Human Papillomavirus (HPV) Immunization Completed 03/14/2016, 07/22/2015, 05/20/2015 Meningococcal Immunization (ACWY) Completed 12/08/2018, 05/20/2015 Meningococcal B Immunization Completed 03/20/2019, 12/08/2018 Hepatitis B Immunization Completed 023, 08/31/2022, 08/01/2022, Additional history exists DTaP/Tdap/Td Immunization Discontinued 2023, 10/18/2023, 12/05/2012, Additional history exists TdaP Immunization Completed 12/19/2023, , 12/05/2012 Rotavirus Immunization Aged Out No lo nger eligible based on patient's age to complete this topic Goals Goal Patient Goal Type Associated Problems Recent Progress Patient-Stated? Author STRESS MANAGEMENT Stress Management Yes Shawna Ferguson, [facility] Note: I just wanna feel better Insurance MEDICAID [facility] [facility] Care Teams Zipper Lining Folder Relationship Specialty Start Date End Date Leah Gomez MD [address] [place] [id number] PCP - General Family Medicine 01/21/25
--- OUTSIDE RECORDS SUMMARY | 2025-04-22 13:21 | XMS_ITS | Clinical Summary ---
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 Gender Identity Female 09/14/2024 11:44 AM WAX BALL KNOCK OUT WORKER Sexual Orientation Straight 09/14/2024 11 :44 AM WAX BALL KNOCK OUT WORKER Obstetrics History Para Term AB IAB SAB [...] 2:46 PM CDT Height 162.6 cm (5' 4) 12/19/2023 8:58 PM CDT Body Mass Index 36.05 12/19/2023 8:58 PM CDT Plan of Treatment Health Maintenance Due Date Last Done Comments Cervical Cancer Screening 2002 Depression Screening 2002 Hepatitis C Screening 2002 Regular Well Visit/Exam 18-64 2020 Covid-19 Vaccine (3 - 2023-2 5 season) 2024 05/21/2021, 04/26/2021 Influenza Vaccine (#1) 2025 05/20/2015 DTaP/Tdap/Td Vaccine (7 - Td or Tdap) 12/18/2033 12/19/2023, 12/05/2012, 04/07/2007, Additional history exists Hepatitis B Screening Completed 2002 , 2002, 2002 Pneumococcal vaccine <65 Completed 003, 2002, 2002 Varicella Vaccines Completed 01/17/2011, 04/07/2007 HPV Vaccines Completed 03/14/2016, 07/04, 05/20/2015 Meningococcal B Vaccine Completed 03/20/2019, 12/08 Insurance [facility] Care Teams Auction Block Clerk Relationship Specialty Start Date End Date Leah Gomez MD [address] [place] [address] [phone] PCP - General Obstetrics and Gynecology 11/07/23
[2025-04-22 13:36] LABS: EDSTREPNEGPOS1 Negative (Negative)
--- NOTE | 2025-04-22 13:37 | ED.URI ---
HPI - URI/Sore Throat General Chief Complaint: Upper Respiratory Infection Stated Complaint: Sore Throat Time Seen by Provider: 04/22/25 13:20 Source: patient Mode of arrival: ambulatory Limitations: no limitations History of Present Illness HPI Narrative: 25-year-old female presents with complaint of sore throat for 2-3 days. No other symptoms. Strep throat exposure from her sister. Requesting strep test and work note. All systems reviewed and negative except as noted above. Related Data Home Medications ?Medication ?Instructions ?Recorded ?Confirmed ?Last Taken ?Type aripiprazole 5 mg tablet mg 04/22/25 Unknown History sertraline 50 mg tablet mg 04/22/25 Unknown History trazodone 50 mg tablet mg 04/22/25 Unknown History Allergies Allergy/AdvReac Type Severity Reaction Status Date / Time No Known Allergies Allergy Verified 04/22/25 13:15 [facility] Past Medical History Medical History (Updated 04/22/25 @ 13:35 by Fanny Hanks NP) Depression Miscarriage September 2024 Social History Social History (Updated 11/13/24 @ 15:46 by Parvin King NP) Smoking status: Current every day smoker Tobacco type: e-cigarettes/vaping Alcohol intake: current Alcohol use details: social Substance use type: does not use Living arrangements: with family Gender identity (if verbalized by the patient): Female Comments At time of signature, agree with nursing past medical, surgical, social and family history. There is no relevant family history pertinent to the presenting complaint. Exam Narrative: GENERAL: This is a well-nourished, well-developed patient, in no apparent distress. HEAD: normocephalic, atraumatic. EYES: PERRL. Sclera clear/white. Vision is grossly intact. EARS: External ears normal, auditory canals clear and without drainage, TMs normal without perforation. Hearing grossly intact. NOSE: External nose normal with no obvious nasal discharge, nares without redness, no rhinorrhea. THROAT: Mucous membranes moist, posterior pharynx clear. NECK: Neck supple, non-tender without lymphadenopathy, masses or thyromegaly. CARDIOVASCULAR: Regular rate and rhythm without murmurs, gallops, or rubs. RESPIRATORY: Clear to auscultation. Breath sounds equal bilaterally. No wheezes, rales, or rhonchi. SKIN: warm, Dry, intact with no suspicious lesions or rash, good texture and turgor. NEURO: awake, alert, and oriented to person, place and time. There were no obvious focal neurologic abnormalities. EXTREMITIES: No joint tenderness, effusion, or edema noted. Course Course Level of Care: Express Care Visit Vital Signs Vital signs: Vital Signs Temperature 36.4 C 04/22/25 13:18 Pulse Rate 107 H 04/22/25 13:18 Respiratory Rate 16 04/22/25 13:18 Blood Pressure 138/74 04/22/25 13:18 Pulse Oximetry 100 04/22/25 13:18 Oxygen Delivery Room Air 04/22/25 13:18 Temperature 36.4 C 04/22/25 13:18 Pulse Rate 107 H 04/22/25 13:18 Respiratory Rate 16 04/22/25 13:18 Blood Pressure 138/74 04/22/25 13:18 Pulse Oximetry 100 04/22/25 13:18 Oxygen Delivery Room Air 04/22/25 13:18 Reviewed MDM - URI/Sore Throat MDM Narrative Medical decision making narrative: negative rapid strep. Patient is well-appearing, nontoxic. Exam findings are normal. Will wait for strep culture prior to treating with antibiotics. Patient agrees with plan of care. Differential Diagnosis Differential diagnosis: Likely upper respiratory infection, viral infection and pharyngitis Lab Data Labs: Lab Results 04/22/25 Range/Units 13:22 POC Grp A Strep Screen Negative (Negative) Discharge Plan Discharge Clinical Impression: Acute viral pharyngitis Patient Disposition: Home Condition: Stable Instructions: Pharyngitis (ED) Additional Instructions: Your strep test was negative today. A strep culture was ordered and results will take 24-48 hours. If your strep culture is positive we will call you at that time and prescribed an antibiotic. Take ibuprofen or Tylenol every 6-8 hours as needed for pain. Drink plenty of fluids and rest. See your doctor symptoms are not improving. Patient Language: Lebanese Prescriptions: No Action trazodone 50 mg tablet sertraline 50 mg tablet aripiprazole 5 mg tablet Follow-up/Referrals: PHYSICIAN,COPPER ETCHER [Primary Care Provider, Internal Medicine] Stand Alone Forms: Work/School Release IP Time of Disposition: 13:35
== END 2025-04-22 13:43 | disposition home or self-care (01) ==
PROVIDERS: Emergency Provider Nurse Practitioner Family
DX: J02.8 Acute pharyngitis due to other specified organisms (principal); F17.290 Nicotine dependence, other tobacco product, uncomplicated; F32.A Depression, unspecified
CPT/HCPCS: 87081; 87880; 99213; G0463

== ENCOUNTER 2025-08-30 12:42 | Emergency (ER) | payer OTHER, SELFPAY ==
[2025-08-30 12:46] VITALS: BP 138/71; PULSE 96; RESP 20; TEMP 36.6; O2SAT 100
--- OUTSIDE RECORDS SUMMARY | 2025-08-30 12:48 | XMS_ITS | Clinical Summary ---
Author Organization [facility] Address [address] [place] [address] Phone Care Team Providers Care Retail Account Manager Name Role Phone Leah Gomez MD Primary Care Provider Unavai lable Medications No known medications Family History Relation Name Status Comments Brother [...] 2021 05/13/2003, 2002, 2002 Pap Smear 2023 Influenza Immunization (#1) 2025 05/20/2015 SARS-COV-2 Immunization ( season) 2025 05/21/2021, 04/26/2021 Respiratory Syncytial Virus (RSV) Immunization (Adult) (1 - 1-dose 75+ series) 2077 Measles Mumps Rubella (MMR) Immunization Discontinued 04/07/2007, 05/13/2003 Polio (IPV) Immunization Discontinued 007, 05/13/2003, 2002, Additional history exists Varicella Immunization Completed 01/17/2011, 2006 Hepatitis A Immunization Discontinued 12/05/2012, [...] STRESS MANAGEMENT Stress Management Yes Shawna Ferguson, [employer] Note: I just wanna feel better Insurance MEDICAID [employer] Care Teams Retail Account Manager Relationship Specialty Start Date End Date Leah Gomez MD PCP - General Family Medicine 01/21/25
--- OUTSIDE RECORDS SUMMARY | 2025-08-30 12:48 | XMS_ITS | Clinical Summary ---
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 Gender Identity Female 09/14/2024 11:44 AM TRACK MECHANIC Sexual Orientation Straight 09/14/2024 11 :44 AM TRACK MECHANIC Obstetrics History Para Term AB IAB SAB [...] Visit/Exam 18-64 2020 Covid-19 Vaccine (3 - 2024-2 6 season) 2025 05/21/2021, 04/26/2021 Influenza Vaccine (#1) 2025 05/20/2015 DTaP/Tdap/Td Vaccine (7 - Td or Tdap) 12/18/2033 12/19/2023, 12/05/2012, 04/07/2007, Additional history exists Hepatitis B Screening Completed 2002 , 2002, 2002 Pneumococcal vaccine <65 Completed 003, 2002, 2002 Varicella Vaccines Completed 01/17/2011, 04/07/2007 HPV Vaccines Completed 03/14/2016, 07/04, 05/20/2015 Meningococcal B Vaccine Completed 03/20/2019, 12/08 Insurance [facility] Care Teams Airplane Pilot Relationship Specialty Start Date End Date Leah Gomez MD [address] [place] [address] [phone] PCP - General Obstetrics and Gynecology 11/07/23
--- NOTE | 2025-08-30 13:18 | ED_ITS ---
HPI - Dental/Oral General Chief complaint: Dental/Oral Stated complaint: Toothache Time Seen by Provider: 08/30/25 13:05 Source: patient, RN notes reviewed and old records reviewed Mode of arrival: ambulatory Limitations: no limitations History of Present Illness HPI Narrative: 25 [facility] complaints of dental pain to #21 tooth for one week duration with sensitivity to hot and cold. Patient reports that she has been taking Ibuprofn and Tylenol for her discomfort. Patient reports no facial swelling or any difficulty swallowing. MD Complaint: tooth pain Location: Tooth # (21) Onset (ago): week(s) (1) Severity scale (1-10): 7 Treatment prior to arrival: oral analgesic (Tylenol and Ibuprofen) Related Data Allergies Allergy/AdvReac Type Severity Reaction Status Date / Time No Known Allergies Allergy Verified 08/30/25 12:55 Review of Systems Review of Systems: CONSTITUTIONAL: Denies fever, chills, or sweats. ENT: Denies rhinorrhea, congestion, sore throat, or otalgia. Reports dental pain to #21 tooth with sensitivity to hot and cold no facial swelling noted CARDIOVASCULAR: Denies chest pain, palpitations, or edema. RESPIRATORY: Denies cough or dyspnea. SKIN: Denies rash or itching. MUSCULOSKELETAL: Denies myalgia. NEUROLOGIC: Denies headache All systems reviewed & are unremarkable except as noted in HPI and below PMFSH Past Medical History Medical History Depression Miscarriage September 2024 Social History Social History Smoking status: Current every day smoker Tobacco type: e-cigarettes/vaping Alcohol intake: current Alcohol use details: social Substance use type: does not use Living arrangements: with family Gender identity (if verbalized by the patient): Female Comments At time of signature, agree with nursing past medical, surgical, social and family history. There is no relevant family history pertinent to the presenting complaint Exam Narrative: GENERAL: Well-appearing, well-nourished, and in no acute distress. HEAD: Normocephalic, atraumatic. EYES: PERRLA and EOMI. ENT: Nares clear, no rhinorrhea or epistaxis. Mucous membranes moist. Dental pain to #21 tooth with tooth note to have broken area, no trismus or any Joel angina no abscess formation or any facial swelling noted NECK: Supple.no lymphadenopathy CHEST: Clear to auscultation. No respiratory distress.SAO2 100% on room air HEART: Regular rate and rhythm. No murmur heard. Normal peripheral pulses. SKIN: Warm, dry, no rash. NEURO: No focal deficits. Alert and oriented x3. Course Course Level of Care: Express Care Visit Vital Signs Vital signs: Vital Signs Temperature 36.6 C 08/30/25 12:46 Pulse Rate 96 08/30/25 12:46 Respiratory Rate 20 08/30/25 12:46 Blood Pressure 138/71 08/30/25 12:46 Pulse Oximetry 100 08/30/25 12:46 Oxygen Delivery Room Air 08/30/25 12:46 Temperature 36.6 C 08/30/25 12:46 Pulse Rate 96 08/30/25 12:46 Respiratory Rate 20 08/30/25 12:46 Blood Pressure 138/71 08/30/25 12:46 Pulse Oximetry 100 08/30/25 12:46 Oxygen Delivery Room Air 08/30/25 12:46 reviewed MDM MDM Narrative Medical decision making narrative: Patient has pain to #21 tooth with noted fracture of tooth, no abscess noted, no facial swelling no trismus or any Joel angina. RX for Pen VK and Peridex mouthwash to patient's pharmacy. Supportive measures of OTC medications for her discomfort. Anticipatory guidance and reasons to seek care in ED reviewed with patient voicing understanding. Differential Diagnosis Differential Diagnosis: Differential diagnostic considerations for dental issues include gingival abscess, dental caries, toothache, dental abscess, fracture of tooth, aphthous ulcer, TMJ. Critical Care Time Critical Care Time Critical Care Time: No Discharge Plan Discharge Clinical Impression: Dentalgia Fracture of tooth Qualifiers: Encounter type: initial encounter Fracture type: closed Qualified Code(s): S02.5XXA - Fracture of tooth (traumatic), initial encounter for closed fracture Patient Disposition: Home Condition: Stable Instructions: Antibiotic Form, Dental Abscess (ED) Additional Instructions: Avoid temperature extremes May apply heat or ice to the face Gentle brushing and flossing Antibiotic as directed Tylenol for lesser pain Use ibuprofen regularly Use the medication as provided for severe pain--caution each tablet contains 325 mg of Tylenol--the maximum dose of Tylenol is 4000 mg in 24 hours. This medication may cause constipation consider starting a laxative at this time Follow-up with the dentist as soon as possible--see the list provided If your symptoms persist, change or worsen significantly before you can contact your personal physician then please, without delay, go to the emergency department for further evaluation. Follow-up with PCP in 7-10 days or sooner if needed Follow up with PCP soon in regards to your blood pressure which is elevated above threshold for referral. Blood pressure above 120/80 may indicate pre-hypertension.138/71 Patient Language: Sinhala Prescriptions: New penicillin V potassium 500 mg tablet 500 mg PO Q12H 10 Days Qty: 20 0RF chlorhexidine gluconate [Peridex] 0.12 % mouthwash 15 ml mucous membrane BID Qty: 473 0RF Follow-up/Referrals: PHYSICIAN,CLASSIFIER OPERATOR [Primary Care Provider, Internal Medicine] Stand Alone Forms: Work/School Release IP Time of Disposition: 13:22 Quality [place] Coma Scale Eyes: Open Verbal: Oriented and Alert Motor: Follows Commands [place] Coma Total Score: 15
== END 2025-08-30 13:25 | disposition home or self-care (01) ==
PROVIDERS: Emergency Provider Registered Nurse
DX: S02.5XXA Fracture of tooth (traumatic), initial encounter for closed fracture (principal); K08.89 Other specified disorders of teeth and supporting structures; F17.290 Nicotine dependence, other tobacco product, uncomplicated; X58.XXXA Exposure to other specified factors, initial encounter
CPT/HCPCS: 99213; G0463